=== PATIENT | male | born 1970 | race Caucasian/White ===

== ENCOUNTER 2018-04-26 06:44 | Outpatient (CLI) | payer OTHER ==
[2018-04-26 15:34] LABS: Hemoglobin 14.4 g/dL (14.0-18.0); Mean Corpuscular HGB CONC 33.8 g/dL (32.0-36.0); Mean Corpuscular Hemoglobin 30.6 pg (27.0-31.0); Mean Corpuscular Volume 90.7 fL (78.0-98.0); Mean Platelet Volume 7.3 fL (7.4-10.4); Platelet Count 178 thou/uL (130-400); RBC Distribution Width 11.5 % (11.5-14.5); Red Blood Cell (RBC) Count 4.69 mill/uL (4.70-6.10); White Blood Cell (WBC) Count 5.3 thou/uL (4.8-10.8)
[2018-04-26 15:39] LABS: INR-International Normal Ratio 1.1; PTT 29.8 SEC (22.9-36.1); Prothrombin Time 14.1 SEC (12.0-14.7)
[2018-04-26 15:55] LABS: Anion Gap 12 mmol/L (10-20); BUN (Urea Nitrogen) 12 mg/dL (8.9-20.6); Calc. Creatinine Clearance 0 mL/min (70-130); Calcium 9.4 mg/dL (7.8-10.44); Carbon Dioxide 28 mmol/L (22-29); Chloride 101 mmol/L (98-107); Estimated GFR-MDRD 86; Glucose 91 mg/dL (70-105); Potassium 3.8 mmol/L (3.5-5.1); Sodium 137 mmol/L (136-145)
--- NOTE | 2018-04-27 21:08 | EKG ---
Test Reason : Blood Pressure : / mmHG Vent. Rate : 067 BPM Atrial Rate : 067 BPM P-R Int : 168 ms QRS Dur : 094 ms QT Int : 420 ms P-R-T Axes : 044 044 023 degrees QTc Int : 443 ms Normal sinus rhythm Normal ECG No previous ECGs available Confirmed by Alta ALICEA ([id number]) on 04/27/2018 9:07:33 PM Referred By: ALICE Confirmed By:Alta ALICEA
== END 2018-04-26 06:45 | disposition home or self-care (01) ==
LOC: LABBT 06:44
PROVIDERS: ATTEND Surgery
DX: Z01.818 Encounter for other preprocedural examination (principal); M51.26 Other intervertebral disc displacement, lumbar region; M48.061 Spinal stenosis, lumbar region without neurogenic claudication
CPT/HCPCS: 80048; 85027; 85610; 85730; 93005; 93010

== ENCOUNTER 2018-05-03 07:18 | Day surgery (SDC) | payer OTHER ==
[2018-04-26 14:45] VITALS: BMI 31.8
[2018-05-03] MEDS ORDERED: Clindamycin/D5W 900 mg/50 ml Premix Bag ONE (08:18)
[2018-05-03] MEDS ORDERED: Levofloxacin 500 mg/D5W 100 ml Premix Bag ONE (08:18)
[2018-05-03] MEDS ORDERED: Fentanyl 250 MCG/5 ML VIAL ONE (08:59)
[2018-05-03] MEDS ORDERED: Bacitracin Zinc Ointment 30 gm TUBE ONE (09:06)
[2018-05-03] MEDS ORDERED: Sodium Chloride 0.9% 10 ML ONE (09:06)
[2018-05-03] MEDS ORDERED: Thrombin 5000 UNITS/5 ML VIAL ONE (09:06)
[2018-05-03] MEDS ORDERED: Midazolam HCl 2 mg/2 ml Vial ONE (09:26)
[2018-05-03] MEDS ORDERED: traMADol HCl 50 MG TAB PO PRN (12:09)
[2018-05-03] MEDS ORDERED: Bisacodyl 10 MG SUPP PR PRN (12:09)
[2018-05-03] MEDS ORDERED: Acetaminophen 325 MG TAB PO PRN (12:09)
[2018-05-03] MEDS ORDERED: Mag-Al 1200 mg/1200 mg/30 ML UDCUP PO PRN (12:09)
[2018-05-03] MEDS ORDERED: Acetaminophen/Codeine 30-300mg Tablet PO PRN (12:09)
[2018-05-03] MEDS ORDERED: tiZANidine HCl 4 MG TAB PO PRN (12:09)
[2018-05-03] MEDS ORDERED: Fleet Enema 133 ML BOT PR PRN (12:09)
[2018-05-03] MEDS ORDERED: Promethazine 25 MG TAB PO PRN (12:09)
[2018-05-03] MEDS ORDERED: Milk Of Magnesia 30 ML UDCUP PO PRN (12:09)
[2018-05-03] MEDS ORDERED: Promethazine HCl 25 MG/ML VIAL IM PRN (12:14)
[2018-05-03] MEDS ORDERED: Ondansetron HCl/PF 4 MG/2 ML Vial IVP PRN (12:14)
[2018-05-03] MEDS ORDERED: Promethazine HCl 25 MG/ML VIAL SLOW IVP PRN (12:14)
[2018-05-03] MEDS ORDERED: Fentanyl 100 MCG/2 ML VIAL ONE ×2 (12:19→12:41)
--- NOTE | 2018-05-03 13:43 | OP ---
DATE OF PROCEDURE: 05/03/2018 OPERATING ROOM: OR 12. PUMP TECHNICIAN: Harry Schrader PA-C PREPROCEDURE DIAGNOSIS: Low back and left leg pain with left L5 and left S1 radiculopathy with disk extrusion. POSTPROCEDURE DIAGNOSIS: Low back and left leg pain with left L5 and left S1 radiculopathy with disk extrusion. PROCEDURES PERFORMED: 1. Left L4-L5 and left L5-S1 hemilaminotomies, foraminotomies, and diskectomies. 2. Use of operative microscope for microdissection. DESCRIPTION OF PROCEDURE: After informed consent was obtained from the patient, the patient was brought to the OR. Proper patient pause and identification were carried out. He was placed under excellent anesthesia and positioned prone on the OR table. All appropriate points were padded. Midline linear james was made over the L4, L5, and S1 dorsal spines and this region was sterilely cleansed, prepared, and draped. Proper patient pause and identification were carried out. The wound was then opened with a combination of sharp, monopolar, and blunt dissection. We proceeded to expose the left L4-L5 and left L5-S1 segments. Localization film confirmed area of interest. We then performed a left L4-L5 and left L5-S1 hemilaminotomies and foraminotomies. Microscope was brought in for microdissection, to decompress the left L5 and left S1 nerve roots. Disk material was removed at each segment to maximize decompression. Copious irrigation occurred throughout as did maximizing hemostasis. The wound was then closed in anatomic layers following sprinkling of vancomycin powder. The patient then emerged from anesthesia. Job ID: [id number]
[2018-05-03] MEDS: Sodium Chloride 0.9% 1,000 ML IV SCH (15:08)
[2018-05-03] MEDS: Clindamycin/D5W 900 MG in Premix Bag 1 BAG IVPB SCH ×2 (15:28→23:29)
[2018-05-03] MEDS: HYDROcodone/Acetaminophen 7.5/325 mg Tablet PO PRN ×2 (15:29→19:13)
[2018-05-03] MEDS ORDERED: Rocuronium Bromide 10 MG/ML (10ML VIAL) ONE (15:32)
[2018-05-03] MEDS ORDERED: PROPOFOL 200 MG/20 ML VIAL ONE (15:32)
[2018-05-03] MEDS ORDERED: Glycopyrrolate 0.2 MG/ML 5 ML SYRINGE ONE (15:32)
[2018-05-03] MEDS ORDERED: Dexamethasone 20 MG/5 ML VIAL ONE (15:32)
[2018-05-03] MEDS ORDERED: Ondansetron PF 4 MG/2 ML Vial ONE (15:32)
[2018-05-03] MEDS ORDERED: Gabapentin 300 MG CAP PO SCH (21:00)
[2018-05-03] MEDS ORDERED: Simvastatin 5 MG TAB PO SCH (21:00)
[2018-05-03] MEDS: Morphine 4 MG/ML VIAL SLOW IVP PRN (23:29)
[2018-05-04] MEDS: Sodium Chloride 0.9% 1,000 ML IV SCH ×2 (02:44→10:42)
[2018-05-04] MEDS: HYDROcodone/Acetaminophen 7.5/325 mg Tablet PO PRN ×3 (03:46→10:50)
[2018-05-04] MEDS ORDERED: Levothyroxine Sodium 75 MCG TAB PO SCH (06:00)
[2018-05-04 08:30] VITALS: TEMP 98.3
[2018-05-04 12:04] VITALS: BP 112/72
--- NOTE | 2018-05-04 12:18 | PRG ---
DATE OF SERVICE: 05/04/2018 SUBJECTIVE: Mr. Shaw is postoperative day 1 from lumbar decompression. He is doing very well with improvement in his leg pain. He has good strength and is mobilizing. We will plan for dismissal. We went over interim postoperative issues. Job ID: [id number]
[2018-05-04] MEDS: Morphine 4 MG/ML VIAL SLOW IVP PRN (13:04)
== END 2018-05-04 14:08 | disposition home or self-care (01) ==
LOC: SDC 07:18 → EDBD 14:30 → SURG B 14:34 → SDC 05-04 14:08
PROVIDERS: ATTEND Surgery
PROC: 0SB20ZZ Excision of Lumbar Vertebral Disc, Open Approach (ICD-10-PCS; principal; 2018-05-03)
DX: M51.17 Intervertebral disc disorders with radiculopathy, lumbosacral region (principal); Z88.0 Allergy status to penicillin; Z79.82 Long term (current) use of aspirin; Z79.899 Other long term (current) drug therapy
CPT/HCPCS: 76000; J1100; J1956; J2250; J2270; J2405; J2704; J3010; J3370; J3490